=== PATIENT | female | born 1990 | race Caucasian/White ===

== ENCOUNTER 2018-01-29 19:27 | Emergency (ER) | payer SELFPAY ==
[2018-01-29 20:22] LABS: Protime INR 1.03
[2018-01-29 20:26] LABS: Absolute Lymphocytes (CBC) 4.9 K/uL (0.7-4.9); Absolute Monocytes 0.7 K/uL (0.1-1.3); Absolute Neutrophil 4.6 K/uL (1.8-8.0); Basophils % 0.5 % (0-1.3); Eosinophils % 1.6 % (0-4.4); Hematocrit 42.8 % (36.0-45.0); Lymphocytes % 46.8 % (15.3-44.8); MCH 29.5 pg (27.0-35.0); MCV 85.2 fL (80-100); MPV 7.9 fL (7.6-11.3); Monocytes % 6.9 % (3.3-12.3); RBC Red Blood Cell Count 5.03 M/uL (3.86-4.86)
[2018-01-29 20:29] LABS: Glucose Level 85 mg/dL (65-120)
[2018-01-29 20:35] LABS: ALT/SGPT 13 IU/L (10-60); AST/SGOT 14 IU/L (10-42); Albumin 4.7 g/dL (3.2-5.5); Alkaline Phosphatase 41 IU/L (42-121); BUN Blood Urea Nitrogen 19 mg/dL (6-20); Bilirubin Direct 0.1 mg/dL (0-0.2); Bilirubin Total 0.7 mg/dL (0.3-1.2); Protein, Total 7.6 g/dL (6.0-8.3)
[2018-01-29 20:36] LABS: Bicarbonate 31 mEq/L (21-31); Sodium Level 136 mEq/L (135-145)
[2018-01-29 20:38] LABS: Alcohol Serum/Plasma < 10 mg/dl; Potassium 2.9 mEq/L (3.6-5.0)
[2018-01-29 20:57] LABS: Barbiturates NEGATIVE; Benzodiazepines NEGATIVE; Cocaine POSITIVE; Opiates NEGATIVE; Phencyclidine NEGATIVE; THC Cannibis NEGATIVE
[2018-01-29 21:01] LABS: METHAMPHETAM POSITIVE (NEGATIVE)
[2018-01-29 21:44] LABS: Urine Blood NEGATIVE (NEG); Urine Glucose NEGATIVE (NEG); Urine Protein 2+ (NEG); Urine Specific Gravity 1.025 (1.005-1.030); Urine pH 6.5 (5.0-7.0)
[2018-01-29] MEDS ORDERED: POTASSIUM 25 MEQ EFFERV TAB ONE (21:47)
--- NOTE | 2018-01-29 22:22 | EDPHYS ---
Physician Documentation [facility] Name: Lianne Duval Age: 27 yrs Sex: Female : 1990 Arrival Date: 01/29/2018 Time: 19:28 Bed 25 Private MD: ED Physician Bentley Sutton HPI: 01/29 20:00 This 27 yrs old Female presents to ER via Ambulatory with complaints of pm1 Hallucinations. 20:00 The patient presents to the emergency department with auditory hallucinations that are pm1 telling her that people are plotting against her. Patient without any suicidal or homicidal ideation. Hallucinations are not telling her self harm or harm to others. Onset: The symptoms/episode began/occurred 3 day(s) ago. Past psychiatric history: Prior diagnosis: no previous psychiatric diagnosis known, Psychiatric medications include: none, the patient has not had a prior suicide gesture, the patient does not have a previous inpatient psychiatric history. Associated signs and symptoms: Pertinent positives; substance abuse, Pertinent negatives: abdominal pain, chest pain, fever, headache, nausea, vomiting. The patient has not experienced similar symptoms in the past. The patient has not recently seen a physician. Patient has been using methamphetamine daily since 2016. Patient was using methamphetamine prior to that until she was put in retirement. 3 days ago the patient started hearing voices and stopped using drugs because she thought that it was due to substance abuse, but the voices continued. in addition to meth amphetamines the patient has been using methadone.. 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 - Social history:: Smoking status: Patient uses tobacco products, smokes one-half pack cigarettes per day, Patient uses street drugs, Methamphetamine (Meth). - Ebola Screening: : No symptoms or risks identified at this time. ROS: 20:00 Constitutional: Negative for fever, chills, and weight loss, Eyes: Negative for injury, pm1 pain, redness, and discharge, ENT: Negative for injury, pain, and discharge, Neck: Negative for injury, pain, and swelling, Cardiovascular: Negative for chest pain, palpitations, and edema, Respiratory: Negative for shortness of breath, cough, wheezing, and pleuritic chest pain, Abdomen/GI: Negative for abdominal pain, nausea, vomiting, diarrhea, and constipation, Back: Negative for injury and pain, : Negative for injury, bleeding, discharge, and swelling, MS/Extremity: Negative for injury and deformity, Skin: Negative for injury, rash, and discoloration, Neuro: Negative for headache, weakness, numbness, tingling, and seizure. 20:00 Psych: Positive for auditory hallucinations, Negative for homicidal ideation, suicide gesture, suicidal ideation. Exam: 20:00 Constitutional: This is a well developed, well nourished patient who is awake, alert, pm1 and in no acute distress. Head/Face: Normocephalic, atraumatic. Eyes: Pupils equal round and reactive to light, extra-ocular motions intact. Lids and lashes normal. Conjunctiva and sclera are non-icteric and not injected. Cornea within normal limits. Periorbital areas with no swelling, redness, or edema. ENT: Nares patent. No nasal discharge, no septal abnormalities noted. Tympanic membranes are normal and external auditory canals are clear. Oropharynx with no redness, swelling, or masses, exudates, or evidence of obstruction, uvula midline. Mucous membranes moist. Neck: Trachea midline, no thyromegaly or masses palpated, and no cervical lymphadenopathy. Supple, full range of motion without nuchal rigidity, or vertebral point tenderness. No Meningismus. Chest/axilla: Normal chest wall appearance and motion. Nontender with no deformity. No lesions are appreciated. Cardiovascular: Regular rate and rhythm with a normal S1 and S2. No gallops, murmurs, or rubs. Normal PMI, no JVD. No pulse deficits. Respiratory: Lungs have equal breath sounds bilaterally, clear to auscultation and percussion. No rales, rhonchi or wheezes noted. No increased work of breathing, no retractions or nasal flaring. Abdomen/GI: Soft, non-tender, with normal bowel sounds. No distension or tympany. No guarding or rebound. No evidence of tenderness throughout. Back: No spinal tenderness. No costovertebral tenderness. Full range of motion. Skin: Warm, dry with normal turgor. Normal color with no rashes, no lesions, and no evidence of cellulitis. MS/ Extremity: Pulses equal, no cyanosis. Neurovascular intact. Full, normal range of motion. 20:00 Neuro: Orientation: is normal, Motor: is normal, no acute changes. 20:00 Psych: Behavior/mood is cooperative, Affect is calm, Oriented to person, place, time, Patient has no thoughts/intents to harm self or others. Judgement / Insight is normal. Vital Signs: 19:38 BP 139 / 99; Pulse 104; Resp 20; Temp 97.3; Pulse Ox 100% on R/A; Weight 45.36 kg (R); aj Height 5 ft. 3 in. (160.02 cm); 20:19 BP 137 / 102; Pulse 79; Resp 18; Pulse Ox 100% on R/A; tl2 21:13 BP 138 / 91; Pulse 74; Resp 18; Pulse Ox 100% on R/A; tl2 22:09 BP 132 / 95; Pulse 95; Resp 18; Pulse Ox 100% on R/A; tl2 19:38 Body Mass Index 17.71 (45.36 kg, 160.02 cm) aj MDM: 19:46 Patient medically screened. pm1 22:17 Data reviewed: vital signs. Data interpreted: Pulse oximetry: on room air is 100 %. pm1 Interpretation: normal. Counseling: I had a detailed discussion with the patient and/or guardian regarding: the historical points, exam findings, and any diagnostic results supporting the discharge/admit diagnosis, lab results, the need for outpatient follow up, to return to the emergency department if symptoms worsen or persist or if there are any questions or concerns that arise at home. 23:00 ED course: Patient reports white painless vaginal discharge prior to ER discharge. pm1 Offered pelvic examination and cultures. Patient refused and reported to the nurse that she would follow up at [facility] instead of examination in the ER. 01/29 19:54 Order name: Acetaminophen; Complete Time: 21:44 pm1 01/29 19:54 Order name: Basic Metabolic Panel; Complete Time: 21:44 pm1 01/29 19:54 Order name: CBC with Diff; Complete Time: 21:44 pm1 01/29 19:54 Order name: ETOH Level; Complete Time: 21:44 pm1 01/29 19:54 Order name: Hepatic Function; Complete Time: 21:44 pm1 01/29 19:54 Order name: PT-INR; Complete Time: 21:44 pm1 01/29 19:54 Order name: Urine Test (obtain specimen); Complete Time: 20:17 pm1 01/29 19:54 Order name: Ptt, Activated; Complete Time: 21:44 pm1 01/29 19:54 Order name: Salicylate; Complete Time: 21:44 pm1 01/29 19:54 Order name: Urine Drug Screen; Complete Time: 21:44 pm1 01/29 19:54 Order name: EKG; Complete Time: 19:55 pm1 01/29 20:44 Order name: Urine Dipstick--Ancillary (enter results); Complete Time: 21:46 rg2 01/29 20:44 Order name: Urine --Ancillary (enter results); Complete Time: 21:46 2 01/29 19:54 Order name: EKG - Nurse/Tech; Complete Time: 20:07 pm1 01/29 19:54 Order name: IV Saline Lock; Complete Time: 20:07 pm1 01/29 19:54 Order name: Labs collected and sent; Complete Time: 20:08 pm1 01/29 19:54 Order name: Urine Dipstick-Ancillary (obtain specimen); Complete Time: 20:17 pm1 Administered Medications: 21:51 Drug: Potassium Effervescent Tablet 50 mEq Route: PO; tl2 23:02 Follow up: Response: No adverse reaction tl2 Disposition: 01/30 06:04 Co-signature as Attending Physician, Bentley Sutton MD I agree with the assessment and tw4 plan of care. Disposition: 01/29/18 22:21 Discharged to Home. 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 - Condition is Stable. - Discharge Instructions: Alcohol and Drug Addiction, Finding Treatment, Stimulant Use Disorder-Amphetamines, Potassium Content of Foods, Polysubstance Abuse, Stimulant Use Disorder-Methamphetamines, Hypokalemia. - Medication Reconciliation Form, Thank You Letter form. - Follow up: Emergency Department; When: As needed; Reason: Worsening of condition. Follow up: Private Physician; When: 2 - 3 days; Reason: Recheck today's complaints, Continuance of care, Re-evaluation by your physician. - Problem is new. - Symptoms have improved. Signatures: Dispatcher [employer] EDMS Stacia Levine RN RN Kristofer Herrera, JEFFERY ASBESTOS ABATEMENT WORKER pm1 Kellie Lott RN RN tl2 Bentley Sutton MD MD tw4 Corrections: (The following items were deleted from the chart) 01/29 23:04 22:21 01/29/2018 22:21 Discharged to Home. Impression: Polysubstance abuse; Other tl2 stimulant abuse with stimulant-induced psychotic disorder with hallucinations; Hypokalemia. Condition is Stable. Forms are Medication Reconciliation Form, Thank You Letter, Antibiotic Education, Prescription Opioid Use. Follow up: Emergency Department; When: As needed; Reason: Worsening of condition. Follow up: Private Physician; When: 2 - 3 days; Reason: Recheck today's complaints, Continuance of care, Re-evaluation by your physician. Problem is new. Symptoms have improved. pm1
--- NOTE | 2018-01-29 22:22 | ER ---
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 Denies suicidal or homicidal ideations. Reports symptoms started 3 days ago while patient was using Meth. Patient reports she stopped using meth when the symptoms started. Transition of care: patient was not received from another setting of care. Onset of symptoms was January 29, 2018. Risk Assessment: Do you want to hurt yourself or someone else? Patient reports no desire to harm self or others. Initial Sepsis Screen: Does the patient meet any 2 criteria? No. Patient's initial sepsis screen is negative. Does the patient have a suspected source of infection? No. Patient's initial sepsis screen is negative. Care prior to arrival: None. 19:37 Method Of Arrival: Ambulatory 19:37 Acuity: JORI 2 aj Triage Assessment: 19:38 General: Appears in no apparent distress. comfortable, slender, Behavior is calm, aj cooperative, appropriate for age. Pain: Denies pain. Neuro: Level of Consciousness is awake, alert, obeys commands, Oriented to person, place, time, situation, Appropriate for age. Respiratory: Airway is patent Respiratory effort is even, unlabored, Respiratory pattern is regular, symmetrical. Derm: Skin is intact, is healthy with good turgor, Skin is pink, warm \\T\\ dry. normal. 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 - Social history:: Smoking status: Patient uses tobacco products, smokes one-half pack cigarettes per day, Patient uses street drugs, Methamphetamine (Meth). - Ebola Screening: : No symptoms or risks identified at this time. Screenin:47 Abuse screen: Denies threats or abuse. Nutritional screening: No deficits noted. tl2 Tuberculosis screening: No symptoms or risk factors identified. Fall Risk None identified. Assessment: 19:47 General: Appears in no apparent distress. unkempt, Behavior is cooperative, appropriate tl2 for age, anxious. General: Pt states she is hearing voices and having paranoid thoughts, "I feel like everyone is out to get me, but I know it's just making me crazy." Pt reports stopping the meth to see if that was causing it but the thoughts have continued. . Pain: Complains of pain in tongue. Neuro: Level of Consciousness is awake, alert, obeys commands, Oriented to person, place, time, situation. Cardiovascular: Denies chest pain. Respiratory: Airway is patent Respiratory effort is even, unlabored, Respiratory pattern is regular, symmetrical. GI: No signs and/or symptoms were reported involving the gastrointestinal system. : No signs and/or symptoms were reported regarding the genitourinary system. Derm: Skin is pink, warm \\T\\ dry. 21:14 Reassessment: Patient appears in no apparent distress at this time. No changes from tl2 previously documented assessment. Patient and/or family updated on plan of care and expected duration. Pain level reassessed. Patient is alert, oriented x 3, equal unlabored respirations, skin warm/dry/pink. Pt resting, family at bedside. 23:02 Reassessment: Patient appears in no apparent distress at this time. Patient and/or tl2 family updated on plan of care and expected duration. Pain level reassessed. Patient is alert, oriented x 3, equal unlabored respirations, skin warm/dry/pink. Pt verbalized understanding of discharge instructions, need for follow up and instructions for [facility] clinic in [place]. Psych: 19:51 Subjective: Patient's mood is euphoric, Delusions are denied, Hallucinations are tl2 auditory, Having thoughts of paranoia. Objective: Patient is cooperative, Speech is normal, Affect is appropriate. Interventions: Patient placed in hospital gown. Suicide Risk Assessment: Sad Person Scale: Sex of patient: Female: Score 0 points. Age of patient: Score 1 point if patient 15-34. Suicide Risk Assessment: Sad Person Scale: Depression: Score 0 point if signs of depression are not present. Previous Attempt: Score 0 point if patient has not previously attempted suicide. Substance Abuse: Score 1 point if patient abuses alcohol or drugs. Rational Thinking: Score 0 point if patient has rational thinking. Social Support: Score 0 if social support is present/available. Organized Plan: Score 0 if patient did not have an organized plan in place. Relationship: Score 1 point if patient is , , , or for a single male Chronic Sickness: Score 0 point if patient does not have a chronic illness, debilitating, or severe disorder. Patient uses methamphetamines Last use was 3 days ago. Vital Signs: 19:38 BP 139 / 99; Pulse 104; Resp 20; Temp 97.3; Pulse Ox 100% on R/A; Weight 45.36 kg (R); aj Height 5 ft. 3 in. (160.02 cm); 20:19 BP 137 / 102; Pulse 79; Resp 18; Pulse Ox 100% on R/A; tl2 21:13 BP 138 / 91; Pulse 74; Resp 18; Pulse Ox 100% on R/A; tl2 22:09 BP 132 / 95; Pulse 95; Resp 18; Pulse Ox 100% on R/A; tl2 19:38 Body Mass Index 17.71 (45.36 kg, 160.02 cm) ED Course: 19:28 Patient arrived in ED. am2 19:38 Triage completed. aj 19:38 Arm band placed on right wrist. Patient placed in an exam room. aj 19:43 Kristofer Fraire NP is PHCP. pm1 19:43 Bentley Sutton MD is Attending Physician. pm1 19:47 Kellie Lott, WENDY is Primary Nurse. tl2 19:47 Patient has correct armband on for positive identification. Bed in low position. Call tl2 light in reach. Side rails up X 1. Adult w/ patient. 20:08 Inserted saline lock: 22 gauge in left antecubital area, using aseptic technique. Blood tl2 collected. 23:02 No provider procedures requiring assistance completed. IV discontinued, intact, tl2 bleeding controlled, No redness/swelling at site. Pressure dressing applied. Administered Medications: 21:51 Drug: Potassium Effervescent Tablet 50 mEq Route: PO; tl2 23:02 Follow up: Response: No adverse reaction tl2 Outcome: 22:21 Discharge ordered by . pm1 23:02 Discharged to home ambulatory, with family. tl2 23:02 Condition: stable 23:02 Discharge instructions given to patient, family, Instructed on discharge instructions, follow up and referral plans. safety practices, Demonstrated understanding of instructions, follow-up care. 23:04 Patient left the ED. tl2 Signatures: Stacia Levine RN Kristofer Boss NP PART TIME FLEXIBLE CLERK pm1 Kellie Lott RN RN tl2 Stacia Bush am2
[2018-01-29 23:16] VITALS: TEMP 97.3; O2SAT 100
[2018-01-29 23:20] VITALS: BP 132/95
--- NOTE | 2018-01-30 06:51 | EKG ---
Test Date: 2018-01-29 Test Time: 20:02:08 Brick Or Block Maker: GLORIA MEASUREMENT RESULTS: Intervals: Rate: 76 HI: 154 QRSD: 96 QT: 400 QTc: 450 [place]: P: 67 HI: 154 QRS: 55 T: 63 INTERPRETIVE STATEMENTS: Normal sinus rhythm with sinus arrhythmia Possible Left atrial enlargement Borderline ECG Compared to ECG 08/12/2016 15:13:25 Sinus tachycardia no longer present Myocardial infarct finding no longer present Electronically Signed On 01-30-18 06:50:49 CDT by Gamal Crawford
== END 2018-01-29 23:04 | disposition home or self-care (01) ==
LOC: ER 19:27
DX: F19.10 Other psychoactive substance abuse, uncomplicated (principal); F15.151 Other stimulant abuse with stimulant-induced psychotic disorder with hallucinations; E87.6 Hypokalemia; R44.0 Auditory hallucinations; F17.210 Nicotine dependence, cigarettes, uncomplicated
CPT/HCPCS: 36415; 80048; 80076; 80307; 80320; 80329; 81003; 81025; 85025; 85610; 85730; 93005; 99284

== ENCOUNTER 2018-05-18 19:17 | Emergency (ER) | payer SELFPAY ==
--- NOTE | 2018-05-18 20:55 | EDPHYS ---
Physician Documentation [facility] Name: Lianne Duval Age: 27 yrs Sex: Female : 1990 Arrival Date: 05/18/2018 Time: 19:19 Bed 9 Private MD: ED Physician Bentley Sutton HPI: 05/18 20:47 This 27 yrs old Female presents to ER via Ambulatory with complaints of Boil. tw4 20:47 The patient presents with an abscess of the gluteal cleft. Description: The affected tw4 area is small, localized, draining, erythematous, fluctuant. Onset: The symptoms/episode began/occurred 3 day(s) ago. Possible cause(s): unknown. Associated signs and symptoms: The patient has no apparent associated signs or symptoms. Modifying factors: the symptoms are alleviated by nothing, the symptoms are aggravated by nothing. Severity of symptoms: At their worst the symptoms were moderate, in the emergency department the symptoms are unchanged. The patient has not experienced similar symptoms in the past. 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 - Social history:: Smoking status: Patient uses tobacco products, smokes one-half pack cigarettes per day, Patient uses alcohol, but reports only rare drinking. street drugs, Methamphetamine (Meth). - Ebola Screening: : No symptoms or risks identified at this time. ROS: 20:47 Constitutional: Negative for fever, chills, and weight loss. tw4 20:47 Skin: Positive for erythema, swelling. Exam: 20:47 Constitutional: This is a well developed, well nourished patient who is awake, alert, tw4 and in no acute distress. 20:47 Skin: abscess, that is small, with drainage, that is bloody, that is purulent, with fluctuance, that is mild. Vital Signs: 19:52 BP 135 / 100; Pulse 89; Resp 18; Temp 98(O); Pulse Ox 100% ; Weight 49.9 kg; Height 5 mg2 ft. 3 in. (160.02 cm); Pain 10/10; 19:52 Body Mass Index 19.49 (49.90 kg, 160.02 cm) mg2 MDM: 19:40 Patient medically screened. tw4 20:47 Data reviewed: vital signs, nurses notes. Counseling: I had a detailed discussion with tw4 the patient and/or guardian regarding: the historical points, exam findings, and any diagnostic results supporting the discharge/admit diagnosis. Special discussion: I discussed with the patient/guardian in detail that at this point there is no indication for admission to the hospital. It is understood, however, that if the symptoms persist or worsen the patient needs to return immediately for re-evaluation. 20:56 ED course: Pt abscess draining well does not need incision and drainage. tw4 Administered Medications: 21:14 Drug: Clindamycin 300 mg Route: PO; mg2 21:15 Follow up: Response: No adverse reaction; Medication administered at discharge. mg2 21:14 Drug: Ibuprofen 800 mg Route: PO; mg2 21:15 Follow up: Response: No adverse reaction; Medication administered at discharge. mg2 21:14 Drug: Tylenol #3 (300 mg-30 mg) 1 tablet Route: PO; mg2 21:15 Follow up: Response: No adverse reaction; Medication administered at discharge. mg2 Disposition: 05/18/18 20:54 Discharged to Home. Impression: Cutaneous abscess of buttock. - Condition is Stable. - Discharge Instructions: Skin Abscess, Incision and Drainage, How to Take a Sitz Bath, Skin Abscess, [id number], Disposable Sitz Bath. - Prescriptions for Cleocin 300 mg Oral Capsule - take 1 capsule by ORAL route every 6 hours for 10 days; 40 capsule. Ibuprofen 800 mg Oral Tablet - take 1 tablet by ORAL route every 12 hours As needed take with food; 20 tablet. Tylenol- Codeine #4 300-60 mg Oral Tablet - take 1 tablet by ORAL route every 6 hours As needed; 6 tablet. - Medication Reconciliation Form, Thank You Letter, Antibiotic Education, Prescription Opioid Use form. - Follow up: Private Physician; When: Upon discharge from the Emergency Department; Reason: Wound Recheck, Recheck today's complaints, Re-evaluation by your physician. - Problem is new. - Symptoms have improved. Signatures: Bentley Sutton MD MD tw4 Lauri Rodriguez RN RN mg2 Corrections: (The following items were deleted from the chart) 21:19 20:54 05/18/2018 20:54 Discharged to Home. Impression: Cutaneous abscess of buttock. mg2 Condition is Stable. Forms are Medication Reconciliation Form, Thank You Letter, Antibiotic Education, Prescription Opioid Use. Follow up: Private Physician; When: Upon discharge from the Emergency Department; Reason: Wound Recheck, Recheck today's complaints, Re-evaluation by your physician. Problem is new. Symptoms have improved. tw4
--- NOTE | 2018-05-18 20:55 | ER ---
Nurse's Notes [facility] Name: Lianne Duval Age: 27 yrs Sex: Female : 1990 Arrival Date: 05/18/2018 Time: 19:19 Bed 9 Private MD: Diagnosis: Cutaneous abscess of buttock Presentation: 05/18 19:50 Presenting complaint: Patient states: she has pilonidal abscess for a week already. mg2 Transition of care: patient was not received from another setting of care. Onset of symptoms was May 2018. Risk Assessment: Do you want to hurt yourself or someone else? Patient reports no desire to harm self or others. Initial Sepsis Screen: Does the patient meet any 2 criteria? No. Patient's initial sepsis screen is negative. Does the patient have a suspected source of infection? No. Patient's initial sepsis screen is negative. Care prior to arrival: None. 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 - Social history:: Smoking status: Patient uses tobacco products, smokes one-half pack cigarettes per day, Patient uses alcohol, but reports only rare drinking. street drugs, Methamphetamine (Meth). - Ebola Screening: : No symptoms or risks identified at this time. Screenin:16 Abuse screen: Denies threats or abuse. Denies injuries from another. Nutritional mg2 screening: No deficits noted. Tuberculosis screening: No symptoms or risk factors identified. Fall Risk None identified. Assessment: 21:15 General: Appears in no apparent distress. uncomfortable, Behavior is calm, cooperative. mg2 Pain: Complains of pain in buttocks and gluteal cleft Pain does not radiate. Pain currently is 5 out of 10 on a pain scale. Neuro: Level of Consciousness is awake, alert, obeys commands, Oriented to person, place, time, situation. Cardiovascular: No deficits noted. Respiratory: No deficits noted. GI: No signs and/or symptoms were reported involving the gastrointestinal system. :. : No signs and/or symptoms were reported regarding the genitourinary system. EENT: No deficits noted. Derm: Abscess located on gluteal cleft is nickel sized. Musculoskeletal: No signs and/or symptoms reported regarding the musculoskeletal system. Vital Signs: 19:52 BP 135 / 100; Pulse 89; Resp 18; Temp 98(O); Pulse Ox 100% ; Weight 49.9 kg; Height 5 mg2 ft. 3 in. (160.02 cm); Pain 10/10; 19:52 Body Mass Index 19.49 (49.90 kg, 160.02 cm) mg2 ED Course: 19:19 Patient arrived in ED. es 19:30 Lauri Rodriguez, RN is Primary Nurse. mg2 19:39 Bentley Sutton MD is Attending Physician. tw4 19:51 Triage completed. mg2 21:16 Patient has correct armband on for positive identification. Pulse ox on. NIBP on. mg2 21:17 examination of pns abscess. Patient did not have IV access during this emergency room mg2 visit. 21:18 Arm band placed on. mg2 Administered Medications: 21:14 Drug: Clindamycin 300 mg Route: PO; mg2 21:15 Follow up: Response: No adverse reaction; Medication administered at discharge. mg2 21:14 Drug: Ibuprofen 800 mg Route: PO; mg2 21:15 Follow up: Response: No adverse reaction; Medication administered at discharge. mg2 21:14 Drug: Tylenol #3 (300 mg-30 mg) 1 tablet Route: PO; mg2 21:15 Follow up: Response: No adverse reaction; Medication administered at discharge. mg2 Outcome: 20:54 Discharge ordered by . tw4 21:18 Discharged to home ambulatory. mg2 21:18 Condition: stable 21:18 Discharge instructions given to patient, Instructed on discharge instructions, follow up and referral plans. medication usage, Demonstrated understanding of instructions, follow-up care, medications, Prescriptions given X 3. 21:19 Patient left the ED. mg2 Signatures: Jing Lou Terrence, MD MD tw4 Lauri Rodriguez, RN RN mg2
[2018-05-18] MEDS ORDERED: CLINDAMYCIN HCL 150 MG CAP ONE (21:08)
[2018-05-18] MEDS ORDERED: CODEINE 30MG/APAP 300MG TAB ONE (21:08)
[2018-05-18] MEDS ORDERED: IBUPROFEN 400 MG TAB ONE (21:08)
[2018-05-18 21:26] VITALS: BP 135/100; TEMP 98; O2SAT 100
== END 2018-05-18 21:19 | disposition home or self-care (01) ==
LOC: ER 19:17
DX: L02.31 Cutaneous abscess of buttock (principal)
CPT/HCPCS: 99283

== ENCOUNTER 2018-06-04 16:27 | Emergency (ER) | payer SELFPAY ==
[2018-06-04] MEDS ORDERED: NA CHLORIDE 0.9% 1,000 ML ONE ×2 (17:20→18:34)
--- NOTE | 2018-06-04 17:30 | RAD REPORT ---
EXAM DESCRIPTION: CT - Head Brain Wo Cont - 06/04/2018 5:18 pm CLINICAL HISTORY: Transient alteration of awareness, vomiting COMPARISON: None. TECHNIQUE: Axial 5 mm thick images of the head were obtained without IV contrast. All CT scans are performed using dose optimization technique as appropriate and may include automated exposure control or mA/KV adjustment according to patient size. FINDINGS: No intracranial hemorrhage, mass, edema or shift of mid-line structures. No acute infarcti on changes seen. No abnormal extra-axial fluid collections. Ventricles are normal. Mastoid air cells and visualized portions of the paranasal sinuses are clear. No acute bony findings. IMPRESSION: Negative non-contrast CT head examination.
[2018-06-04 17:34] LABS: Absolute Lymphocytes (CBC) 5.6 K/uL (0.7-4.9); Absolute Monocytes 0.6 K/uL (0.1-1.3); Basophils % 0.5 % (0-1.3); Lymphocytes % 53.7 % (15.3-44.8); MCH 29.6 pg (27.0-35.0); MCV 87.1 fL (80-100); MPV 7.8 fL (7.6-11.3); Monocytes % 6.1 % (3.3-12.3)
[2018-06-04 17:39] LABS: Protime INR 1.1
[2018-06-04 17:58] LABS: ALT/SGPT 17 U/L (12-78); AST/SGOT 9 U/L (15-37); Alkaline Phosphatase 46 U/L (45-117); BUN Blood Urea Nitrogen 14 mg/dL (7-18); Bicarbonate 28 mmol/L (21-32); Bilirubin Direct 0.2 mg/dL (0-0.2); Bilirubin Total 0.6 mg/dL (0.2-1.0); Glucose Level 119 mg/dL (74-106); Potassium 3.3 mmol/L (3.5-5.1); Protein, Total 7.4 g/dL (6.4-8.2); Sodium Level 141 mmol/L (136-145)
[2018-06-04] MEDS ORDERED: KCL 20 MEQ/100 mL IVPB 20 MEQ/100 ML BAG IV ONE (18:34)
--- NOTE | 2018-06-04 18:53 | ER ---
Nurse's Notes [facility] Name: Lianne Duval Age: 27 yrs Sex: Female : 1990 Arrival Date: 06/04/2018 Time: 16:31 Bed 2 Private MD: Diagnosis: Vomiting;Drug abuse counseling and surveillance;Dehydration;Hypokalemia Presentation: 06/04 16:43 Presenting complaint: Patient states: Reports vomiting that started 1 hour ago. Reports aj taking Xanax 2mg and " a quarter of a suboxone". Transition of care: patient was not received from another setting of care. Onset of symptoms was June 04, 2018. Risk Assessment: Do you want to hurt yourself or someone else? Patient reports no desire to harm self or others. Initial Sepsis Screen: Does the patient meet any 2 criteria? No. Patient's initial sepsis screen is negative. Does the patient have a suspected source of infection? No. Patient's initial sepsis screen is negative. Care prior to arrival: None. 16:43 Method Of Arrival: Ambulatory 16:43 Acuity: JORI 2 Triage Assessment: 16:45 General: Appears in no apparent distress. comfortable, Behavior is drowsy. Pain: Denies aj pain. Neuro: Level of Consciousness is obtunded, Oriented to person, place, time, situation. Respiratory: Airway is patent Respiratory effort is even, unlabored, Respiratory pattern is regular, symmetrical. GI: Reports nausea, vomiting. Derm: Skin is intact, is healthy with good turgor, Skin is normal, pale. 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 - Social history:: Smoking status: Patient uses tobacco products, smokes one-half pack cigarettes per day, Patient uses IV drugs, amphetamines, Xanax, soboxone. - Ebola Screening: : Patient negative for fever greater than or equal to 101.5 degrees Fahrenheit, and additional compatible Ebola Virus Disease symptoms Patient denies exposure to infectious person Patient denies travel to an Ebola-affected area in the 21 days before illness onset No symptoms or risks identified at this time. - Family history:: not pertinent. - Hospitalizations: : No recent hospitalization is reported. Screenin:02 Abuse screen: Denies threats or abuse. Denies injuries from another. Nutritional bp screening: No deficits noted. Tuberculosis screening: No symptoms or risk factors identified. Fall Risk No fall in past 12 months (0 pts). No secondary diagnosis (0 pts). IV access (20 points). Ambulatory Aid- None/Bed Rest/Nurse Assist (0 pts). Gait- Normal/Bed Rest/Wheelchair (0 pts) Mental Status- Oriented to own ability (0 pts). Total Dunlap Fall Scale indicates No Risk (0-24 pts). Assessment: 17:02 General: Appears distressed, comfortable, slender, malnourished, Behavior is bp cooperative, drowsy, listless. Pain: Denies pain. Neuro: Level of Consciousness is obeys commands, lethargic, Oriented to person, place, time, situation, Appropriate for age. Cardiovascular: Rhythm is sinus rhythm. Respiratory: Airway is patent Respiratory effort is even, unlabored, Respiratory pattern is regular, symmetrical. GI: Reports vomiting. : No signs and/or symptoms were reported regarding the genitourinary system. EENT: PUPILS CONSTRICTED, PALES SCLERA. Derm: No deficits noted. Musculoskeletal: Circulation, motion, and sensation intact. Range of motion: intact in all extremities. 17:19 Reassessment: PT TO CT WITH DISPATCHER MOTOR VEHICLE. bp 18:00 Reassessment: ALL CURRENT STUDIES COMPLETED, RESULTS PENDING. PT CONTINUES TO BE bp LETHARGIC/DROWSY, VS STABLE ON MONITOR. 19:15 Reassessment: Patient and/or family updated on plan of care and expected duration. Pain tl1 level reassessed. Patient is alert, oriented x 3, equal unlabored respirations, skin warm/dry/pink. Patient states feeling better. Patient states symptoms have improved. Vital Signs: 16:45 BP 131 / 105; Pulse 97; Resp 19; Temp 98.1; Pulse Ox 99% on R/A; Weight 49.9 kg; Height aj 5 ft. 3 in. (160.02 cm); 17:08 BP 134 / 94; Pulse 66; Resp 13; Pulse Ox 100% ; bp 18:00 BP 132 / 114; Pulse 79; Resp 15; Pulse Ox 100% ; bp 18:30 BP 122 / 101; Pulse 86; Resp 20; Pulse Ox 100% ; bp 19:12 BP 121 / 93; Pulse 87; Resp 16; Pulse Ox 100% on R/A; Pain 0/10; tl1 20:39 BP 124 / 87; Pulse 92; Resp 16; Temp 98.4; Pulse Ox 100% ; Pain 0/10; tl1 16:45 Body Mass Index 19.49 (49.90 kg, 160.02 cm) ED Course: 16:31 Patient arrived in ED. rg4 16:45 Triage completed. aj 16:45 Arm band placed on right wrist. Patient placed in an exam room. aj 16:50 Surinder Rivas, RN is Primary Nurse. bp 16:52 Keshav Zaldivar MD is Attending Physician. rn 17:05 Patient has correct armband on for positive identification. Placed in gown. Bed in low bp position. Call light in reach. Side rails up X2. Adult w/ patient. 17:15 EKG done, by nuclear monitoring technician. reviewed by Keshav Zaldivar MD. 3 17:18 CT Head Brain wo Cont In Process Unspecified. EDMS 17:23 Initial lab(s) drawn, by me, sent to lab. Inserted. Inserted saline lock: 20 gauge in jb1 right antecubital area, using aseptic technique. Blood collected. 18:32 Urine collected: clean catch specimen, cloudy, guillaume colored. jb1 20:41 No provider procedures requiring assistance completed. IV discontinued, intact, tl1 bleeding controlled, No redness/swelling at site. Pressure dressing applied. Administered Medications: 17:27 Drug: NS 0.9% 1000 ml Route: IV; Rate: 1000 ml; Site: right antecubital; hj 20:41 Follow up: IV Status: Completed infusion tl1 18:35 Drug: Potassium Chloride 20 mEq Route: IV; Rate: 1 bolus; Site: right forearm; bp 20:40 Follow up: IV Status: Completed infusion tl1 18:35 Drug: NS 0.9% 1000 ml Route: IV; Rate: 1000 ml; Site: right forearm; bp 20:40 Follow up: IV Status: Completed infusion tl1 Point of Care Testing: Blood Glucose: 17:10 Blood Glucose: 125 mg/dL; bp Ranges: Outcome: 18:53 Discharge ordered by . rn 20:40 Discharged to home ambulatory, with family. tl1 20:40 Condition: good 20:40 Discharge instructions given to patient, family, Instructed on discharge instructions, follow up and referral plans. Demonstrated understanding of instructions, follow-up care. 21:00 Patient left the ED. tl1 Signatures: Dispatcher [employer] EDMS Augustine Bradford jb1 Stacia Levine RN RN aj Nieto, Roman, MD MD rn Lasagna, Tonya, RN RN tl1 Deshawn Grajeda RN RN hj Garcia, Rubi 4 Surinder Rivas RN RN bp Montes, Shakira 3 Corrections: (The following items were deleted from the chart) 17:24 17:05 Inserted saline lock: 20 gauge in right antecubital area, using aseptic jb1 technique. Blood collected. bp 18:19 17:02 Neuro: Level of Consciousness is awake, alert, obeys commands, Oriented to bp person, place, time, situation, Appropriate for age bp
--- NOTE | 2018-06-04 18:54 | EDPHYS ---
Physician Documentation [facility] Name: Lianne Duval Age: 27 yrs Sex: Female : 1990 Arrival Date: 06/04/2018 Time: 16:31 Bed 2 Private MD: ED Physician Keshav Zaldivar HPI: 06/04 17:28 This 27 yrs old Female presents to ER via Ambulatory with complaints of rn Vomiting. 17:28 The patient presents to the emergency department with nausea, vomiting. Onset: The rn symptoms/episode began/occurred today. Possible causes: unknown. The symptoms are aggravated by nothing. The symptoms are alleviated by nothing. Severity of symptoms: At their worst the symptoms were moderate in the emergency department the symptoms are unchanged. The patient has experienced similar episodes in the past. Reports nausea/vomiting, generalized weakness, and pale, began today, no fever, no headache, states took 1 xanax and 1 suboxone today, uses meth and stimulants every other day per friend in room, but brought her in because "looks more messed up than she should be with what she took". Pt denies head trauma, no chest pain/cough/sob/abd pain. Denies other drug use today. . 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 - Social history:: Smoking status: Patient uses tobacco products, smokes one-half pack cigarettes per day, Patient uses IV drugs, amphetamines, Xanax, soboxone. - Ebola Screening: : Patient negative for fever greater than or equal to 101.5 degrees Fahrenheit, and additional compatible Ebola Virus Disease symptoms Patient denies exposure to infectious person Patient denies travel to an Ebola-affected area in the 21 days before illness onset No symptoms or risks identified at this time. - Family history:: not pertinent. - Hospitalizations: : No recent hospitalization is reported. ROS: 17:28 Constitutional: Negative for fever, chills, and weight loss, Eyes: Negative for injury, rn pain, redness, and discharge, Neck: Negative for injury, pain, and swelling, Cardiovascular: Negative for chest pain, palpitations, and edema, Respiratory: Negative for shortness of breath, cough, wheezing, and pleuritic chest pain, Abdomen/GI: + nausea/vomiting MS/Extremity: Negative for injury and deformity, Skin: Negative for injury, rash, and discoloration, Neuro: + generalized weakness Exam: 17:28 Constitutional: Thin female, somnolent, pale lips and skin Head/Face: Normocephalic, rn atraumatic. Eyes: pupils 2mm, reactive, no nystagmus ENT: dry MM Neck: Trachea midline, no thyromegaly or masses palpated, and no cervical lymphadenopathy. Supple, full range of motion without nuchal rigidity, or vertebral point tenderness. No Meningismus. Cardiovascular: Regular rate and rhythm with a normal S1 and S2. No gallops, murmurs, or rubs. Normal PMI, no JVD. No pulse deficits. Respiratory: Lungs have equal breath sounds bilaterally, clear to auscultation and percussion. No rales, rhonchi or wheezes noted. No increased work of breathing, no retractions or nasal flaring. Abdomen/GI: Soft, non-tender, with normal bowel sounds. No distension or tympany. No guarding or rebound. No evidence of tenderness throughout. Skin: warm, dry, bilateral upper ext with ulcerated wounds and excoriations MS/ Extremity: Pulses equal, no cyanosis. Neurovascular intact. Full, normal range of motion. Equal circumference. Neuro: Somnolent, moves all 4 ext, able to sit up, slight slurring of speech, sensation intact. Vital Signs: 16:45 BP 131 / 105; Pulse 97; Resp 19; Temp 98.1; Pulse Ox 99% on R/A; Weight 49.9 kg; Height aj 5 ft. 3 in. (160.02 cm); 17:08 BP 134 / 94; Pulse 66; Resp 13; Pulse Ox 100% ; bp 18:00 BP 132 / 114; Pulse 79; Resp 15; Pulse Ox 100% ; bp 18:30 BP 122 / 101; Pulse 86; Resp 20; Pulse Ox 100% ; bp 19:12 BP 121 / 93; Pulse 87; Resp 16; Pulse Ox 100% on R/A; Pain 0/10; tl1 20:39 BP 124 / 87; Pulse 92; Resp 16; Temp 98.4; Pulse Ox 100% ; Pain 0/10; tl1 16:45 Body Mass Index 19.49 (49.90 kg, 160.02 cm) aj MDM: 16:52 Patient medically screened. rn 18:47 Differential diagnosis: viral gastroenteritis, gastroenteritis, drug induced disorder, rn hypokalemia, dehydration. Data reviewed: vital signs, nurses notes, lab test result(s), radiologic studies, CT scan, and as a result, I will discharge patient. Counseling: I had a detailed discussion with the patient and/or guardian regarding: the historical points, exam findings, and any diagnostic results supporting the discharge/admit diagnosis, lab results, radiology results, the need for outpatient follow up, to return to the emergency department if symptoms worsen or persist or if there are any questions or concerns that arise at home. Response to treatment: the patient's symptoms have markedly improved after treatment, patient is well hydrated. and as a result, I will discharge patient. Special discussion: I discussed with the patient/guardian in detail that at this point there is no indication for admission to the hospital. It is understood, however, that if the symptoms persist or worsen the patient needs to return immediately for re-evaluation. ED course: Pt improved, more alert, better color to skin and lips, dehydrated, hypokalemic, and effects of drugs. Recommended stopping using drugs, and will dc home with patient plan to go to rehab. Patient leaving with friend/significant other. Feels much better. . 06/04 17:06 Order name: Acetaminophen; Complete Time: 18:23 rn 06/04 17:06 Order name: Basic Metabolic Panel; Complete Time: 18:23 rn 06/04 17:06 Order name: CBC with Diff; Complete Time: 17:48 rn 06/04 17:06 Order name: ETOH Level; Complete Time: 18:27 rn 06/04 17:06 Order name: Hepatic Function; Complete Time: 18:23 rn 06/04 17:06 Order name: PT-INR; Complete Time: 17:48 rn 06/04 17:06 Order name: Ptt, Activated; Complete Time: 17:48 rn 06/04 17:06 Order name: Salicylate; Complete Time: 18:34 rn 06/04 17:06 Order name: Urine Drug Screen; Complete Time: 19:06 rn 06/04 17:06 Order name: CT Head Brain wo Cont; Complete Time: 17:38 rn 06/04 17:12 Order name: AMMONIA; Complete Time: 18:23 rn 06/04 18:28 Order name: Urine Dipstick--Ancillary (enter results) eb 06/04 18:28 Order name: Urine --Ancillary (enter results) eb 06/04 17:06 Order name: Urine Test (obtain specimen); Complete Time: 18:33 rn 06/04 17:06 Order name: EKG; Complete Time: 17:06 rn 06/04 17:06 Order name: EKG - Nurse/Tech; Complete Time: 17:09 rn 06/04 17:06 Order name: IV Saline Lock; Complete Time: 17:09 rn 06/04 17:06 Order name: Labs collected and sent; Complete Time: 17:09 rn 06/04 17:06 Order name: Urine Dipstick-Ancillary (obtain specimen); Complete Time: 18:32 rn 06/04 17:07 Order name: Accucheck; Complete Time: 17:09 rn Administered Medications: 17:27 Drug: NS 0.9% 1000 ml Route: IV; Rate: 1000 ml; Site: right antecubital; hj 20:41 Follow up: IV Status: Completed infusion tl1 18:35 Drug: Potassium Chloride 20 mEq Route: IV; Rate: 1 bolus; Site: right forearm; bp 20:40 Follow up: IV Status: Completed infusion tl1 18:35 Drug: NS 0.9% 1000 ml Route: IV; Rate: 1000 ml; Site: right forearm; bp 20:40 Follow up: IV Status: Completed infusion tl1 Point of Care Testing: Blood Glucose: 17:10 Blood Glucose: 125 mg/dL; bp Ranges: Critical Glucose Levels:Adult <50 mg/dl or >400 mg/dl <40 mg/dl or >180 mg/dl Disposition: 06/04/18 18:53 Discharged to Home. Impression: Vomiting, Drug abuse counseling and surveillance, Dehydration, Hypokalemia. - Condition is Stable. - Discharge Instructions: Dehydration, Adult, Nausea and Vomiting, Adult, Hypokalemia. - Medication Reconciliation Form, Thank You Letter, Antibiotic Education, Prescription Opioid Use form. - Follow up: Private Physician; When: As needed; Reason: Recheck today's complaints, Re-evaluation by your physician. - Problem is new. - Symptoms have improved. Signatures: Dispatcher [employer] EDStacia Roth, RN RN Keshav Galarza MD MD rn Lasagna, Tonya, RN RN tl1 Deshawn Grajeda RN RN Surinder Bach, RN RN bp Corrections: (The following items were deleted from the chart) 21:00 18:53 06/04/2018 18:53 Discharged to Home. Impression: Vomiting; Drug abuse counseling tl1 and surveillance; Dehydration; Hypokalemia. Condition is Stable. Forms are Medication Reconciliation Form, Thank You Letter, Antibiotic Education, Prescription Opioid Use. Follow up: Private Physician; When: As needed; Reason: Recheck today's complaints, Re-evaluation by your physician. Problem is new. Symptoms have improved. rn
[2018-06-04 18:59] LABS: Barbiturates NEGATIVE (NEGATIVE); Benzodiazepines POSITIVE (NEGATIVE); Cocaine NEGATIVE (NEGATIVE); METHAMPHETAM POSITIVE (NEGATIVE); Methadone NEGATIVE (NEGATIVE); Opiates NEGATIVE (NEGATIVE); Phencyclidine NEGATIVE (NEGATIVE); THC Cannibis NEGATIVE (NEGATIVE)
[2018-06-04 19:41] LABS: Urine Blood NEGATIVE (NEG); Urine Glucose TRACE (NEG); Urine Protein 1+ (NEG); Urine pH 6.5 (5.0-7.0)
[2018-06-04 21:05] VITALS: O2SAT 100
[2018-06-04 21:10] VITALS: BP 124/87; TEMP 98.4
--- NOTE | 2018-06-06 07:54 | EKG ---
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
== END 2018-06-04 21:00 | disposition home or self-care (01) ==
LOC: ER 16:27
DX: E87.6 Hypokalemia (principal); E86.0 Dehydration; Z71.51 Drug abuse counseling and surveillance of drug abuser
CPT/HCPCS: 36415; 70450; 80048; 80076; 80307; 80320; 80329; 81003; 81025; 82140; 82962; 85025; 85610; 85730; 93005; 96361; 96365; 96366; 99284; J7030

== ENCOUNTER 2018-07-04 19:54 | Emergency (ER) | payer SELFPAY ==
--- NOTE | 2018-07-04 20:20 | ER ---
Nurse's Notes [facility] Name: Lianne Duval Age: 27 yrs Sex: Female : 1990 Arrival Date: 07/04/2018 Time: 19:56 Bed 18 Private MD: Surinder Garcia Diagnosis: Other stimulant abuse;Paresthesia of skin;Essential (primary) hypertension Presentation: 07/04 20:07 Presenting complaint: Patient states: she has been having this problem for a while but bb it has gotten constant over the last week "it feels hot down there" pt denies vaginal discharge or burning with urination. Transition of care: patient was not received from another setting of care. Onset of symptoms is unknown. Risk Assessment: Do you want to hurt yourself or someone else? Patient reports no desire to harm self or others. Initial Sepsis Screen: Does the patient meet any 2 criteria? No. Patient's initial sepsis screen is negative. Does the patient have a suspected source of infection? No. Patient's initial sepsis screen is negative. Care prior to arrival: None. 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 - Social history:: Smoking status: Patient uses tobacco products, smokes one pack cigarettes per day. Patient uses alcohol, but reports only rare drinking. street drugs, Methamphetamine (Meth). - Ebola Screening: : No symptoms or risks identified at this time. Screenin:11 Abuse screen: Denies threats or abuse. Denies injuries from another. Nutritional lp1 screening: No deficits noted. Tuberculosis screening: No symptoms or risk factors identified. Fall Risk None identified. Assessment: 20:10 General: Appears in no apparent distress. Behavior is appropriate for age. Pain: lp1 Complains of pain in groin Pain currently is 5 out of 10 on a pain scale. Quality of pain is described as burning, Pain began States "it has been going on for a while". Neuro: Level of Consciousness is awake, alert, obeys commands. Cardiovascular: Patient's skin is warm and dry. Respiratory: Respiratory effort is even, unlabored. GI: No signs and/or symptoms were reported involving the gastrointestinal system. : Reports vaginal burning. EENT: No signs and/or symptoms were reported regarding the EENT system. Derm: Skin is pink, warm \\T\\ dry. Musculoskeletal: Circulation, motion, and sensation intact. Vital Signs: 20:09 BP 140 / 111; Pulse 114; Resp 16 S; Temp 98.4(O); Pulse Ox 100% on R/A; Weight 52.16 kg bb (R); Height 5 ft. 3 in. (160.02 cm) (R); Pain 10/10; 20:35 BP 150 / 109; Pulse 109; Resp 16; Pulse Ox 99% on R/A; lp1 20:09 Body Mass Index 20.37 (52.16 kg, 160.02 cm) ED Course: 19:56 Patient arrived in ED. es 19:57 Surinder Garcia MD is Private Physician. es 20:03 [facility] snw 20:03 Konstantin Fritz MD is Attending Physician. snw 20:03 Lachelle Peng, WENDY is Primary Nurse. lp1 20:09 Triage completed. bb 20:09 Arm band placed on Patient placed in an exam room, on a stretcher, on pulse oximetry. bb 20:11 Patient has correct armband on for positive identification. lp1 20:35 No provider procedures requiring assistance completed. Patient did not have IV access lp1 during this emergency room visit. Administered Medications: No medications were administered Outcome: 20:19 Discharge ordered by . snw 20:35 Discharged to home ambulatory, with significant other. lp1 20:35 Condition: good 20:35 Discharge instructions given to patient, Instructed on discharge instructions, follow up and referral plans. medication usage, Demonstrated understanding of instructions, follow-up care, medications, Prescriptions given X 1. 20:36 Patient left the ED. lp1 Signatures: Naina Verma FNP-C FNP-Manuelw Jing Lou Brenda, RN RN bb Lachelle Peng RN RN lp1
--- NOTE | 2018-07-04 20:20 | EDPHYS ---
Physician Documentation [facility] Name: Lianne Duval Age: 27 yrs Sex: Female : 1990 Arrival Date: 07/04/2018 Time: 19:56 Bed 18 Private MD: Surinder Garcia ED Physician Konstantin Fritz HPI: 07/04 20:16 This 27 yrs old Female presents to ER via Ambulatory with complaints of snw FEMALE PROBLEMS. 20:16 Onset: The symptoms/episode began/occurred gradually. Associated signs and symptoms: snw Pertinent positives: pt describes burning to perineum, no lesions, no discharge. Modifying factors:. The patient has experienced similar episodes in the past. The patient has not recently seen a physician. 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 - Social history:: Smoking status: Patient uses tobacco products, smokes one pack cigarettes per day. Patient uses alcohol, but reports only rare drinking. street drugs, Methamphetamine (Meth). - Ebola Screening: : No symptoms or risks identified at this time. ROS: 20:15 Constitutional: Negative for fever, chills, and weight loss, Eyes: Negative for injury, snw pain, redness, and discharge, ENT: Negative for injury, pain, and discharge, Neck: Negative for injury, pain, and swelling, Cardiovascular: Negative for chest pain, palpitations, and edema, Respiratory: Negative for shortness of breath, cough, wheezing, and pleuritic chest pain, Abdomen/GI: Negative for abdominal pain, nausea, vomiting, diarrhea, and constipation, Back: Negative for injury and pain, MS/Extremity: Negative for injury and deformity, Skin: Negative for injury, rash, and discoloration, Neuro: Negative for headache, weakness, numbness, tingling, and seizure. 20:15 : Positive for "feels hot down there", denies dysuria, denies fever. Exam: 20:14 Constitutional: This is a well developed, well nourished patient who is awake, alert, snw and in no acute distress. Head/Face: Normocephalic, atraumatic. Eyes: Pupils equal round and reactive to light, extra-ocular motions intact. Lids and lashes normal. Conjunctiva and sclera are non-icteric and not injected. Cornea within normal limits. Periorbital areas with no swelling, redness, or edema. ENT: Nares patent. No nasal discharge, no septal abnormalities noted. Tympanic membranes are normal and external auditory canals are clear. Oropharynx with no redness, swelling, or masses, exudates, or evidence of obstruction, uvula midline. Mucous membranes moist. Neck: Trachea midline, no thyromegaly or masses palpated, and no cervical lymphadenopathy. Supple, full range of motion without nuchal rigidity, or vertebral point tenderness. No Meningismus. Chest/axilla: Normal chest wall appearance and motion. Nontender with no deformity. No lesions are appreciated. 20:14 Respiratory: Lungs have equal breath sounds bilaterally, clear to auscultation and percussion. No rales, rhonchi or wheezes noted. No increased work of breathing, no retractions or nasal flaring. Abdomen/GI: Soft, non-tender, with normal bowel sounds. No distension or tympany. No guarding or rebound. No evidence of tenderness throughout. Back: No spinal tenderness. No costovertebral tenderness. Full range of motion. Skin: Warm, dry with normal turgor. Normal color with no rashes, no lesions, and no evidence of cellulitis. MS/ Extremity: Pulses equal, no cyanosis. Neurovascular intact. Full, normal range of motion. Neuro: Awake and alert, GCS 15, oriented to person, place, time, and situation. Cranial nerves II-XII grossly intact. Motor strength 5/5 in all extremities. Sensory grossly intact. Cerebellar exam normal. Normal gait. 20:14 Cardiovascular: Rate: tachycardic, Rhythm: regular, Heart sounds: normal. Vital Signs: 20:09 BP 140 / 111; Pulse 114; Resp 16 S; Temp 98.4(O); Pulse Ox 100% on R/A; Weight 52.16 kg bb (R); Height 5 ft. 3 in. (160.02 cm) (R); Pain 10/10; 20:35 BP 150 / 109; Pulse 109; Resp 16; Pulse Ox 99% on R/A; lp1 20:09 Body Mass Index 20.37 (52.16 kg, 160.02 cm) bb MDM: 20:03 Patient medically screened. snw 20:24 Data reviewed: vital signs, nurses notes. Data interpreted: Pulse oximetry: on room air snw is 100 %. Interpretation: normal. Counseling: I had a detailed discussion with the patient and/or guardian regarding: the historical points, exam findings, and any diagnostic results supporting the discharge/admit diagnosis, the presence of at least one elevated blood pressure reading (>120/80) during this emergency department visit, the need for outpatient follow up, to return to the emergency department if symptoms worsen or persist or if there are any questions or concerns that arise at home. Special discussion: I have referred the patient to see his PCP for further evaluation of high blood pressure. Based on the history and exam findings, there is no indication for further emergent testing or inpatient evaluation. I discussed with the patient/guardian the need to see the primary care provider for further evaluation of the symptoms. 07/04 20:12 Order name: Urine Culture snw 07/04 20:12 Order name: Urine Microscopic Only; Complete Time: 20:37 snw 07/04 20:12 Order name: Urine Test (obtain specimen); Complete Time: 20:14 snw 07/04 20:12 Order name: Urine Dipstick-Ancillary (obtain specimen); Complete Time: 20:14 snw 07/04 20:15 Order name: Urine Dipstick--Ancillary (enter results); Complete Time: 20:37 mw2 07/04 20:15 Order name: Urine --Ancillary (enter results); Complete Time: 20:37 mw2 Administered Medications: No medications were administered Disposition: 23:09 Co-signature as Attending Physician, Konstantin Fritz MD. pkl Disposition: 07/04/18 20:19 Discharged to Home. Impression: Other stimulant abuse, Paresthesia of skin, Essential (primary) hypertension. - Condition is Stable. - Discharge Instructions: Hypertension, Paresthesia, How to Take a Sitz Bath, What You Need To Know About Illegal Drug Use and Dependence, Youth. - Prescriptions for Lotrimin AF 1 % Topical cream - apply 1 application by TOPICAL route 2 times per day; 50 gram. - Medication Reconciliation Form, Thank You Letter, Antibiotic Education, Prescription Opioid Use form. - Notes: please use baking soda with sitz baths Signatures: Dispatcher [employer] EDMS Konstantin Fritz MD MD pkl Naina Verma, LUNCH TRUCK OPERATOR-C LUNCH TRUCK OPERATOR-Csnw Faye Leblanc, RN RN bb Lachelle Peng, RN RN lp1 Corrections: (The following items were deleted from the chart) 20:26 20:19 07/04/2018 20:19 Discharged to Home. Impression: Other stimulant abuse; snw Paresthesia of skin. Condition is Stable. Forms are Medication Reconciliation Form, Thank You Letter, Antibiotic Education, Prescription Opioid Use. snw 20:36 20:26 07/04/2018 20:19 Discharged to Home. Impression: Other stimulant abuse; lp1 Paresthesia of skin; Essential (primary) hypertension. Condition is Stable. Discharge Instructions: Hypertension, Paresthesia, How to Take a Sitz Bath, What You Need To Know About Illegal Drug Use and Dependence, Youth. Forms are Medication Reconciliation Form, Thank You Letter, Antibiotic Education, Prescription Opioid Use. snw
[2018-07-04 20:30] LABS: Urine Blood NEGATIVE (NEG); Urine Glucose NEGATIVE (NEG); Urine Protein NEGATIVE (NEG); Urine Specific Gravity 1.015 (1.005-1.030); Urine pH 7.5 (5.0-7.0)
[2018-07-04 20:32] LABS: Urine Bacteria <20 /HPF (<20); Urine Culture Reflex Order NOT NEEDED; Urine RBC NONE SEEN /HPF (NONE SEEN)
[2018-07-04 20:42] VITALS: TEMP 98.4
[2018-07-04 20:43] VITALS: BP 150/109; O2SAT 99
== END 2018-07-04 20:36 | disposition home or self-care (01) ==
LOC: ER 19:54
DX: F15.10 Other stimulant abuse, uncomplicated (principal); I10 Essential (primary) hypertension; F17.210 Nicotine dependence, cigarettes, uncomplicated
CPT/HCPCS: 81003; 81015; 81025; 87086; 87088; 99283

== ENCOUNTER 2018-09-05 21:30 | Emergency (ER) | payer SELFPAY ==
[2018-09-05 23:04] LABS: Absolute Lymphocytes (CBC) 3.8 K/uL (0.7-4.9); Absolute Monocytes 0.6 K/uL (0.1-1.3); Absolute Neutrophil 6.1 K/uL (1.8-8.0); Basophils % 0.3 % (0-1.3); Hematocrit 33.4 % (36.0-45.0); Lymphocytes % 35.9 % (15.3-44.8); MPV 7.3 fL (7.6-11.3); Monocytes % 5.3 % (3.3-12.3); RBC Red Blood Cell Count 3.92 M/uL (3.86-4.86)
[2018-09-05 23:40] LABS: Urine Blood TRACE (NEG); Urine Glucose NEGATIVE (NEG); Urine Protein NEGATIVE (NEG); Urine Specific Gravity 1.025 (1.005-1.030)
[2018-09-05 23:40] LABS: Urine Bacteria <20 /HPF (<20); Urine Culture Reflex Order NOT NEEDED; Urine RBC <5 /HPF (NONE SEEN)
[2018-09-06 00:21] LABS: ALT/SGPT 19 U/L (12-78); AST/SGOT 13 U/L (15-37); Albumin 3.8 g/dL (3.4-5.0); Alkaline Phosphatase 39 U/L (45-117); BUN Blood Urea Nitrogen 9 mg/dL (7-18); Bicarbonate 29 mmol/L (21-32); Bilirubin Total 0.2 mg/dL (0.2-1.0); Glucose Level 76 mg/dL (74-106); HCG, Quantitative 6744 mIU/mL (1-3); Potassium 3.3 mmol/L (3.5-5.1); Protein, Total 6.9 g/dL (6.4-8.2); Sodium Level 140 mmol/L (136-145)
[2018-09-06 00:22] LABS: Barbiturates NEGATIVE (NEGATIVE); Benzodiazepines POSITIVE (NEGATIVE); Cocaine NEGATIVE (NEGATIVE); METHAMPHETAM POSITIVE (NEGATIVE); Methadone NEGATIVE (NEGATIVE); Opiates POSITIVE (NEGATIVE); Phencyclidine NEGATIVE (NEGATIVE); THC Cannibis NEGATIVE (NEGATIVE)
--- NOTE | 2018-09-06 02:58 | ER ---
Nurse's Notes [facility] Name: Lianne Duval Age: 27 yrs Sex: Female : 1990 Arrival Date: 09/05/2018 Time: 21:30 Bed 8 Private MD: Diagnosis: Threatened miscarriage Presentation: 09/05 21:38 Presenting complaint: Patient states: Heavy vaginal bleeding that started 1 week ago aj and increased today, with clots. Transition of care: patient was not received from another setting of care. Onset of symptoms was August 30, 2018. Risk Assessment: Do you want to hurt yourself or someone else? Patient reports no desire to harm self or others. Initial Sepsis Screen: Does the patient meet any 2 criteria? No. Patient's initial sepsis screen is negative. Does the patient have a suspected source of infection? No. Patient's initial sepsis screen is negative. Care prior to arrival: None. 21:38 Method Of Arrival: Ambulatory aj 21:38 Acuity: JORI 3 aj Triage Assessment: 21:39 General: Appears in no apparent distress. comfortable, Behavior is calm, cooperative, aj appropriate for age. Pain: Denies pain. Neuro: Level of Consciousness is awake, alert, obeys commands, Oriented to person, place, time, situation, Appropriate for age. Respiratory: Airway is patent Respiratory effort is even, unlabored, Respiratory pattern is regular, symmetrical. : Reports vaginal bleeding that is with clots, heavy flow. Derm: Skin is intact, is healthy with good turgor, Skin is pink, warm \T\ dry. normal. 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 unable to give accurate history wa Historical: - Allergies: 21:39 No Known Allergies; aj - Home Meds: 21:39 None [Active]; aj - PMHx: 21:39 Depression; HYPOGLYCEMIA; aj - PSHx: 21:39 ; aj - Immunization history:: Adult Immunizations up to date. - Social history:: Smoking status: Patient uses tobacco products, smokes one-half pack cigarettes per day, Patient uses street drugs, Methamphetamine (Meth) Xanax and Suboxone. - Ebola Screening: : Patient negative for fever greater than or equal to 101.5 degrees Fahrenheit, and additional compatible Ebola Virus Disease symptoms Patient denies exposure to infectious person Patient denies travel to an Ebola-affected area in the 21 days before illness onset No symptoms or risks identified at this time. - Family history:: not pertinent. - Hospitalizations: : No recent hospitalization is reported. Screenin:12 Abuse screen: Denies threats or abuse. Nutritional screening: No deficits noted. jd3 Tuberculosis screening: No symptoms or risk factors identified. Fall Risk Ambulatory Aid- None/Bed Rest/Nurse Assist (0 pts). Gait- Normal/Bed Rest/Wheelchair (0 pts) Mental Status- Overestimates/Forgets Limitations (15 pts.). Total Dunlap Fall Scale indicates No Risk (0-24 pts). Assessment: 22:12 General: Appears in no apparent distress. uncomfortable, Behavior is calm, cooperative, jd3 appropriate for age. Pain: Complains of pain in suprapubic area Quality of pain is described as aching. Neuro: Level of Consciousness is awake, alert, obeys commands, Oriented to person, place, time, situation, Appropriate for age. Cardiovascular: Capillary refill < 3 seconds Patient's skin is warm and dry. Respiratory: Airway is patent Respiratory effort is even, unlabored, Respiratory pattern is regular, symmetrical. GI: Abdomen is flat, Bowel sounds present X 4 quads. Abd is soft Abdomen is tender to palpation in suprapubic area. : Reports vaginal bleeding that is with clots, heavy flow. EENT: No signs and/or symptoms were reported regarding the EENT system. Derm: Skin is intact, Skin is dry, Skin is normal, Skin temperature is warm. Musculoskeletal: Circulation, motion, and sensation intact. Range of motion: intact in all extremities. 22:55 Reassessment: Patient appears in no apparent distress at this time. No changes from jd3 previously documented assessment. Patient and/or family updated on plan of care and expected duration. Pain level reassessed. Patient is alert, oriented x 3, equal unlabored respirations, skin warm/dry/pink. 09/06 00:00 Reassessment: Patient appears in no apparent distress at this time. No changes from jd3 previously documented assessment. Patient and/or family updated on plan of care and expected duration. Pain level reassessed. Patient is alert, oriented x 3, equal unlabored respirations, skin warm/dry/pink. awaiting ultrasound. 00:55 Reassessment: Patient and/or family updated on plan of care and expected duration. Pain ea level reassessed. Ultrasound at bedside. 01:14 Reassessment: Patient appears in no apparent distress at this time. Patient and/or jd3 family updated on plan of care and expected duration. Pain level reassessed. Patient is alert, oriented x 3, equal unlabored respirations, skin warm/dry/pink. ultrasound at bedside. 02:17 Reassessment: Patient appears in no apparent distress at this time. Patient and/or jd3 family updated on plan of care and expected duration. Pain level reassessed. Patient is alert, oriented x 3, equal unlabored respirations, skin warm/dry/pink. awaiting results. 03:06 Reassessment: Patient appears in no apparent distress at this time. Patient and/or jd3 family updated on plan of care and expected duration. Pain level reassessed. Patient is alert, oriented x 3, equal unlabored respirations, skin warm/dry/pink. 04:05 Reassessment: Patient appears in no apparent distress at this time. No changes from jd3 previously documented assessment. Patient and/or family updated on plan of care and expected duration. Pain level reassessed. Patient is alert, oriented x 3, equal unlabored respirations, skin warm/dry/pink. 04:41 Reassessment: Patient appears in no apparent distress at this time. No changes from jd3 previously documented assessment. Patient and/or family updated on plan of care and expected duration. Pain level reassessed. Patient is alert, oriented x 3, equal unlabored respirations, skin warm/dry/pink. pt and significant other reported understanding of discharge instructions. Vital Signs: 09/05 21:39 BP 123 / 93; Pulse 112; Resp 20; Temp 98.6; Pulse Ox 100% on R/A; Weight 49.44 kg; aj Height 5 ft. 3 in. (160.02 cm); 22:55 BP 131 / 91; Pulse 110; Resp 19 S; Pulse Ox 100% on R/A; jd3 23:56 Pulse 105; Resp 16 S; Pulse Ox 100% on R/A; jd3 09/06 01:15 BP 122 / 82; Pulse 61; Resp 15 S; Pulse Ox 98% on R/A; jd3 02:17 Pulse 88; Resp 14 S; Pulse Ox 100% on R/A; jd3 03:06 BP 107 / 71; Pulse 80; Resp 15 S; Pulse Ox 100% on R/A; jd3 04:32 BP 119 / 82; Pulse 85; Resp 16; Pulse Ox 100% ; ea 09/05 21:39 Body Mass Index 19.31 (49.44 kg, 160.02 cm) ED Course: 09/05 21:30 Patient arrived in ED. ds1 21:39 Triage completed. 21:39 Arm band placed on right wrist. Patient placed in waiting room, Patient notified of wait time. 22:02 Luis Albarran MD is Attending Physician. umair 22:07 Gerardo Sutherland RN is Primary Nurse. jd3 22:14 Patient has correct armband on for positive identification. Placed in gown. Bed in low jd3 position. Call light in reach. Side rails up X 1. Adult w/ patient. 22:37 Inserted saline lock: 20 gauge in right antecubital area, using aseptic technique. jd3 Blood collected. 09/06 01:25 Ultrasound completed. Patient tolerated well. Notified ED Physician haley. sg3 01:32 US Pelvis Complete In Process Unspecified. EDLA 02:58 Yvonne Mercado MD is Referral Physician. wa 04:38 No provider procedures requiring assistance completed. IV discontinued, intact, jd3 bleeding controlled, No redness/swelling at site. Pressure dressing applied. Administered Medications: 03:47 Drug: Rho D Immune Globulin 300 mcg Route: IM; Site: right deltoid; ea 04:34 Follow up: Response: No adverse reaction jose Outcome: 02:58 Discharge ordered by . wa 04:39 Discharged to home via wheelchair, with significant other. jd3 04:39 Condition: stable 04:39 Discharge instructions given to patient, significant other, Instructed on discharge instructions, follow up and referral plans. Demonstrated understanding of instructions, follow-up care. 04:55 Patient left the ED. jd3 Signatures: Dispatcher [employer] EDMS Stacia Levine RN RN aj Sanford, Demi ds1 Hazel Reynaga RN RN ea Appiah, William, MD MD wa Davies, Jonathon, RN RN jd3 Godinez, Sarah sg3 Corrections: (The following items were deleted from the chart) 09/05 21:42 21:39 Arm band placed on right wrist. Patient placed in an exam room, aj lauren 09/06 01:15 01:14 Reassessment: Patient appears in no apparent distress at this time. No changes jd3 from previously documented assessment. Patient and/or family updated on plan of care and expected duration. Pain level reassessed. Patient is alert, oriented x 3, equal unlabored respirations, skin warm/dry/pink. ultrasound at bedside jd3 04:41 04:05 Reassessment: Patient appears in no apparent distress at this time. No changes jd3 from previously documented assessment. Patient and/or family updated on plan of care and expected duration. Pain level reassessed. Patient is alert, oriented x 3, equal unlabored respirations, skin warm/dry/pink. pt and significant other reported understanding of discharge instructions. jd3 04:41 04:41 Reassessment: Patient appears in no apparent distress at this time. No changes jd3 from previously documented assessment. Patient and/or family updated on plan of care and expected duration. Pain level reassessed. Patient is alert, oriented x 3, equal unlabored respirations, skin warm/dry/pink. pt and significant other reported understanding of discharge instructions. jd3
--- NOTE | 2018-09-06 02:58 | EDPHYS ---
Physician Documentation [facility] Name: Lianne Duval Age: 27 yrs Sex: Female : 1990 Arrival Date: 09/05/2018 Time: 21:30 Bed 8 Private MD: ED Physician Luis Albarran HPI: 09/05 22:10 This 27 yrs old Female presents to ER via Ambulatory with complaints of wa Vaginal Bleeding - +. 22:10 The patient presents with vaginal bleeding that is heavy. Onset: The symptoms/episode wa began/occurred 5 day(s) ago. Modifying factors: The symptoms are alleviated by nothing, the symptoms are aggravated by nothing. Associated signs and symptoms: Pertinent positives: cramping, Pertinent negatives: dysuria, fever, nausea, vaginal discharge, vomiting. Severity of symptoms: At their worst the symptoms were moderate, in the emergency department the symptoms are actually worse, moderately. The patient is sexually active, does not use protection during intercourse. The patient has experienced similar episodes in the past, a few times. The patient has not recently seen a physician. 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 unable to give accurate history wa Historical: - Allergies: 21:39 No Known Allergies; aj - Home Meds: 21:39 None [Active]; aj - PMHx: 21:39 Depression; HYPOGLYCEMIA; aj - PSHx: 21:39 ; aj - Immunization history:: Adult Immunizations up to date. - Social history:: Smoking status: Patient uses tobacco products, smokes one-half pack cigarettes per day, Patient uses street drugs, Methamphetamine (Meth) Xanax and Suboxone. - Ebola Screening: : Patient negative for fever greater than or equal to 101.5 degrees Fahrenheit, and additional compatible Ebola Virus Disease symptoms Patient denies exposure to infectious person Patient denies travel to an Ebola-affected area in the 21 days before illness onset No symptoms or risks identified at this time. - Family history:: not pertinent. - Hospitalizations: : No recent hospitalization is reported. ROS: 22:12 Positive for pelvic pain, vaginal bleeding. wa 22:12 Constitutional: Negative for fever, chills, and weight loss, Eyes: Negative for injury, pain, redness, and discharge, ENT: Negative for injury, pain, and discharge, Neck: Negative for injury, pain, and swelling, Cardiovascular: Negative for chest pain, palpitations, and edema, Respiratory: Negative for shortness of breath, cough, wheezing, and pleuritic chest pain, Abdomen/GI: Negative for abdominal pain, nausea, vomiting, diarrhea, and constipation, Back: Negative for injury and pain, MS/Extremity: Negative for injury and deformity, Skin: Negative for injury, rash, and discoloration, Neuro: Negative for headache, weakness, numbness, tingling, and seizure. 22:12 All other systems are negative. Exam: 22:12 Constitutional: This is a well developed, well nourished patient who is awake, alert, wa and in no acute distress. Head/Face: Normocephalic, atraumatic. Eyes: Pupils equal round and reactive to light, extra-ocular motions intact. Lids and lashes normal. Conjunctiva and sclera are non-icteric and not injected. Cornea within normal limits. Periorbital areas with no swelling, redness, or edema. ENT: Nares patent. No nasal discharge, no septal abnormalities noted. Tympanic membranes are normal and external auditory canals are clear. Oropharynx with no redness, swelling, or masses, exudates, or evidence of obstruction, uvula midline. Mucous membranes moist. Neck: Trachea midline, no thyromegaly or masses palpated, and no cervical lymphadenopathy. Supple, full range of motion without nuchal rigidity, or vertebral point tenderness. No Meningismus. Chest/axilla: Normal chest wall appearance and motion. Nontender with no deformity. No lesions are appreciated. Cardiovascular: Regular rate and rhythm with a normal S1 and S2. No gallops, murmurs, or rubs. Normal PMI, no JVD. No pulse deficits. Respiratory: Lungs have equal breath sounds bilaterally, clear to auscultation and percussion. No rales, rhonchi or wheezes noted. No increased work of breathing, no retractions or nasal flaring. Back: No spinal tenderness. No costovertebral tenderness. Full range of motion. Skin: Warm, dry with normal turgor. Normal color with no rashes, no lesions, and no evidence of cellulitis. MS/ Extremity: Pulses equal, no cyanosis. Neurovascular intact. Full, normal range of motion. Neuro: Awake and alert, GCS 15, oriented to person, place, time, and situation. Cranial nerves II-XII grossly intact. Motor strength 5/5 in all extremities. Sensory grossly intact. Cerebellar exam normal. Normal gait. Psych: Awake, alert, with orientation to person, place and time. Behavior, mood, and affect are within normal limits. 22:12 Abdomen/GI: Inspection: abdomen appears normal, Bowel sounds: normal, Palpation: mild abdominal tenderness, in the suprapubic area. 22:21 : CVA tenderness, is absent, Pelvic Exam: External exam: is normal, Speculum exam: wa moderate bleeding, blood clots in vaginal vault, os that is closed, the lead nuclear medicine technologist was present for the exam. Vital Signs: 21:39 BP 123 / 93; Pulse 112; Resp 20; Temp 98.6; Pulse Ox 100% on R/A; Weight 49.44 kg; aj Height 5 ft. 3 in. (160.02 cm); 22:55 BP 131 / 91; Pulse 110; Resp 19 S; Pulse Ox 100% on R/A; jd3 23:56 Pulse 105; Resp 16 S; Pulse Ox 100% on R/A; jd3 01/ 01:15 BP 122 / 82; Pulse 61; Resp 15 S; Pulse Ox 98% on R/A; jd3 02:17 Pulse 88; Resp 14 S; Pulse Ox 100% on R/A; jd3 03:06 BP 107 / 71; Pulse 80; Resp 15 S; Pulse Ox 100% on R/A; jd3 04:32 BP 119 / 82; Pulse 85; Resp 16; Pulse Ox 100% ; ea 09/05 21:39 Body Mass Index 19.31 (49.44 kg, 160.02 cm) aj MDM: 09/05 22:02 Patient medically screened. wa 22:13 Differential diagnosis: vag bleed. will eval. wa 09/06 02:03 Data reviewed: vital signs, nurses notes, lab test result(s), radiologic studies. Test wa interpretation: by ED physician or midlevel provider: anemia 11.7/33.4. O Neg blood. quant HC. 02:07 Test interpretation: by ED physician or midlevel provider: UDS noted for benzos, wa opiates, meth. 02:57 Test interpretation: by ED physician or midlevel provider: US noted irregularly shaped pr gestational sac in the uterus. . Response to treatment: the patient's symptoms have markedly improved after treatment. 09/05 22:08 Order name: Quantitative Hcg; Complete Time: 00:25 pr 09/05 22:08 Order name: Abo/rh Typing pr 09/05 22:08 Order name: CBC with Diff; Complete Time: 00:25 pr 09/05 22:08 Order name: CMP; Complete Time: 00:25 pr 09/05 22:08 Order name: UDS; Complete Time: 00:25 pr 09/05 22:08 Order name: Urine Microscopic Only; Complete Time: 00:25 pr 09/05 22:52 Order name: Urine Dipstick--Ancillary (enter results); Complete Time: 00:25 [facility] 09/05 22:52 Order name: Urine --Ancillary (enter results); Complete Time: 00:25 [facility] 09/06 00:00 Order name: US Pelvis Complete pr 09/06 01:02 Order name: Rh Typing [facility] 09/06 01:02 Order name: Antibody Screen [facility] 09/06 01:02 Order name: Fetalscreen [facility] 09/06 01:02 Order name: Cord Rh type [facility] 09/06 01:02 Order name: Rhogam [facility] 09/05 22:08 Order name: Urine Test (obtain specimen); Complete Time: 22:33 pr 09/05 22:08 Order name: IV Saline Lock; Complete Time: 22:45 pr 09/05 22:08 Order name: Labs collected and sent; Complete Time: 22:45 pr 09/05 22:08 Order name: NPO; Complete Time: 22:12 pr 09/05 22:08 Order name: Urine Dipstick-Ancillary (obtain specimen); Complete Time: 22:33 pr 09/05 22:08 Order name: Pelvic Exam Setup; Complete Time: 22:33 pr Administered Medications: 03:47 Drug: Rho D Immune Globulin 300 mcg Route: IM; Site: right deltoid; ea 04:34 Follow up: Response: No adverse reaction ea Disposition: 09/06/18 02:58 Discharged to Home. Impression: Threatened miscarriage. - Condition is Stable. - Discharge Instructions: Threatened Miscarriage, [id number]. - Medication Reconciliation Form, Thank You Letter, Antibiotic Education, Prescription Opioid Use form. - Follow up: Yvonne Mercado MD; When: 1 - 2 days; Reason: Recheck today's complaints. - Problem is new. - Symptoms have improved. - Notes: follow up with the PILOT CAN ROUTER doctor above as discussed Signatures: Dispatcher [employer] Stacia Aquino RN Hazel Younger RN RN ea Appiah, William, MD MD wa Davies, Jonathon, RN RN jd3 Corrections: (The following items were deleted from the chart) 04:55 02:58 09/06/2018 02:58 Discharged to Home. Impression: Threatened miscarriage. jd3 Condition is Stable. Forms are Medication Reconciliation Form, Thank You Letter, Antibiotic Education, Prescription Opioid Use. Follow up: Yvonne Mercado; When: 1 - 2 days; Reason: Recheck today's complaints. Problem is new. Symptoms have improved. umair
[2018-09-06 05:00] VITALS: TEMP 98.6
[2018-09-06 05:04] VITALS: O2SAT 100
[2018-09-06 05:07] VITALS: BP 119/82
--- NOTE | 2018-09-06 10:17 | RAD REPORT ---
EXAM DESCRIPTION: US - Pelvis Complete - 09/06/2018 1:32 am CLINICAL HISTORY: VAGINAL BLEEDING COMPARISON: No comparisons FINDINGS: There is an irregularly-shaped gestational sac seen in the endometrial canal, however in t he lower uterine segment. No normal yolk sac or embryo is seen. The maternal adnexa and ovaries are within normal limits. Normal Doppler blood flow was demonstrated to both ovaries. IMPRESSION: A normal IUP is not seen. Irregularly-shaped gestational sac is seen in the lower uterin e segment of the endometrium. Slightly, this represents an inevitable spontaneous . Advise serial HCG levels until normalization.
== END 2018-09-06 04:55 | disposition home or self-care (01) ==
LOC: ER 21:30
DX: O20.0 Threatened abortion (principal); Z3A.00 Weeks of gestation of pregnancy not specified
CPT/HCPCS: 36415; 76856; 80053; 80307; 81003; 81015; 81025; 84702; 85025; 86850; 86900; 86901; 96372; 99284; J2790

== ENCOUNTER 2018-10-17 20:27 | Emergency (ER) | payer SELFPAY ==
[2018-10-17 21:37] LABS: Absolute Lymphocytes (CBC) 3.4 K/uL (0.7-4.9); Absolute Monocytes 0.5 K/uL (0.1-1.3); Absolute Neutrophil 4.2 K/uL (1.8-8.0); Basophils % 0.4 % (0-1.3); Eosinophils % 1.1 % (0-4.4); Hematocrit 26.3 % (36.0-45.0); Lymphocytes % 41.3 % (15.3-44.8); MPV 7.4 fL (7.6-11.3); Monocytes % 6.5 % (3.3-12.3); RBC Red Blood Cell Count 3.51 M/uL (3.86-4.86)
[2018-10-17 21:54] LABS: BUN Blood Urea Nitrogen 15 mg/dL (7-18); Bicarbonate 30 mmol/L (21-32); Glucose Level 92 mg/dL (74-106); HCG, Quantitative 12 mIU/mL (1-3); Potassium 3.6 mmol/L (3.5-5.1); Sodium Level 141 mmol/L (136-145)
[2018-10-17 22:50] LABS: Urine Blood 3+ (NEG); Urine Glucose NEGATIVE (NEG); Urine Protein TRACE (NEG); Urine Specific Gravity 1.015 (1.005-1.030)
--- NOTE | 2018-10-18 01:37 | ER ---
Nurse's Notes [facility] Name: Lianne Duval Age: 28 yrs Sex: Female : 1990 Arrival Date: 10/17/2018 Time: 20:28 Bed 27 Private MD: Diagnosis: Spontaneous Presentation: 10/17 20:37 Presenting complaint: Patient states: I haven't stopped bleeding since September 05, 2018. ed1 I had a threatened miscarriage and I am bleeding really bad. Transition of care: patient was not received from another setting of care. Onset of symptoms was September 05, 2018. Risk Assessment: Do you want to hurt yourself or someone else? Patient reports no desire to harm self or others. Initial Sepsis Screen: Does the patient meet any 2 criteria? No. Patient's initial sepsis screen is negative. Does the patient have a suspected source of infection? No. Patient's initial sepsis screen is negative. Care prior to arrival: None. 20:37 Method Of Arrival: Ambulatory ed1 20:37 Acuity: JORI 3 ed1 Triage Assessment: 20:39 General: Appears uncomfortable, Behavior is calm, cooperative. Pain: Complains of pain ed1 in right lower quadrant Pain does not radiate. Pain currently is 8 out of 10 on a pain scale. Quality of pain is described as pressure, Pain began 2-3 days ago. : Reports vaginal bleeding that is with clots, heavy flow since September 05, 2018. 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 It has been more than one year since last vaccine. - Social history:: Smoking status: Patient uses tobacco products, smokes one pack cigarettes per day. - Ebola Screening: : Patient negative for fever greater than or equal to 101.5 degrees Fahrenheit, and additional compatible Ebola Virus Disease symptoms Patient denies exposure to infectious person Patient denies travel to an Ebola-affected area in the 21 days before illness onset. Screenin:04 Abuse screen: Denies threats or abuse. Denies injuries from another. Nutritional mg2 screening: No deficits noted. Tuberculosis screening: No symptoms or risk factors identified. Fall Risk IV access (20 points). Assessment: 21:02 General: Appears in no apparent distress. comfortable, Behavior is calm, cooperative. mg2 Pain: Complains of pain in vaginal area Pain does not radiate. Pain currently is 10 out of 10 on a pain scale. Quality of pain is described as sore Pain began gradually. Neuro: Level of Consciousness is awake, alert, obeys commands, Oriented to person, place, time, situation. Cardiovascular: Capillary refill < 3 seconds Patient's skin is warm and dry. Respiratory: Airway is patent Respiratory effort is even, unlabored, Respiratory pattern is regular, symmetrical. GI: Reports rectal bleeding. : Urine is blood tinged, Reports vaginal bleeding that is with clots, moderate flow, since 1 month now. EENT: No signs and/or symptoms were reported regarding the EENT system. Derm: Skin is intact, is healthy with good turgor, Skin is pink, warm \T\ dry. normal. Musculoskeletal: Circulation, motion, and sensation intact. Capillary refill < 3 seconds. 23:18 Reassessment: Patient appears in no apparent distress at this time. Patient and/or mg2 family updated on plan of care and expected duration. Pain level reassessed. Patient is alert, oriented x 3, equal unlabored respirations, skin warm/dry/pink. 10/18 00:15 Reassessment: pelvic exam done by MARIBEL Gordon and JEFFERY Self, patient [place] [facility]. 01:50 Reassessment: Patient appears in no apparent distress at this time. patient denies mg2 dizziness or weakness. discharged in good condition. Vital Signs: 10/17 20:39 BP 129 / 86; Pulse 110; Resp 16; Temp 98; Pulse Ox 100% on R/A; Weight 47.17 kg; Height ed1 5 ft. 3 in. (160.02 cm); Pain 0/10; 21:05 BP 124 / 84; Pulse 95; Resp 18; Pulse Ox 100% on R/A; Pain 10/10; mg2 10/18 00:20 BP 120 / 90; Pulse 100; Resp 18; Pulse Ox 100% on R/A; Pain 0/10; mg2 01:40 BP 120 / 80; Pulse 98; Resp 18; Pulse Ox 100% on R/A; Pain 0/10; mg2 10/17 20:39 Body Mass Index 18.42 (47.17 kg, 160.02 cm) ed1 ED Course: 10/17 20:28 Patient arrived in ED. mr 20:38 Triage completed. ed1 20:39 Arm band placed on right wrist. ed1 20:43 Lauri Rodriguez RN is Primary Nurse. mg2 20:45 Evan Barraza PA is PHCP. jr8 20:45 Riley Perkins MD is Attending Physician. jr8 21:04 No provider procedures requiring assistance completed. Inserted saline lock: 20 gauge mg2 in right antecubital area, using aseptic technique. Blood collected. 21:05 Patient has correct armband on for positive identification. Pulse ox on. NIBP on. Door mg2 closed. 22:05 US Transvaginal Ob In Process Unspecified. EDMS 22:08 Ultrasound completed. Patient tolerated well. sg3 02 01:20 Repeat lab(s) drawn. by hi, sent to lab. mg2 01:50 IV discontinued, intact, bleeding controlled, No redness/swelling at site. Pressure mg2 dressing applied. Administered Medications: No medications were administered Outcome: 01:36 Discharge ordered by . jr8 01:51 Discharged to home ambulatory. mg2 01:51 Condition: stable 01:51 Discharge instructions given to patient, Instructed on discharge instructions, follow up and referral plans. medication usage, Demonstrated understanding of instructions, follow-up care, medications, Prescriptions given X 2. 01:51 Patient left the ED. mg2 Signatures: Dispatcher [employer] CHELSEAWY Johanna Augustin mr FalkDee, RN RN ed1 Evan Barraza PA PA jrConstance Brito sg3 Lauri Rodriguez, WENDY RN mg2
--- NOTE | 2018-10-18 01:37 | EDPHYS ---
Physician Documentation [facility] Name: Lianne Duval Age: 28 yrs Sex: Female : 1990 Arrival Date: 10/17/2018 Time: 20:28 Bed 27 Private MD: ED Physician Riley Perkins HPI: 10/17 21:20 This 28 yrs old Female presents to ER via Ambulatory with complaints of jr8 Vaginal Bleeding. 21:20 The patient presents with vaginal bleeding that is moderate. Onset: The jr8 symptoms/episode began/occurred gradually, 1 month(s) ago. Modifying factors: The symptoms are alleviated by nothing, the symptoms are aggravated by nothing. Associated signs and symptoms: The patient has no apparent associated signs or symptoms. Severity of symptoms: At their worst the symptoms were mild, in the emergency department the symptoms are actually worse. The patient has not experienced similar symptoms in the past. The patient has not recently seen a physician. Patient had positive IUP back in early September. Was seen in ED for spotting. Diagnosed with threatened miscarriage at that time. Never followed up. Continued to have spotting but now staring today had increased bleeding with clots. Patient also complaining of lower vaginal/pelvic pain . 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 It has been more than one year since last vaccine. - Social history:: Smoking status: Patient uses tobacco products, smokes one pack cigarettes per day. - Ebola Screening: : Patient negative for fever greater than or equal to 101.5 degrees Fahrenheit, and additional compatible Ebola Virus Disease symptoms Patient denies exposure to infectious person Patient denies travel to an Ebola-affected area in the 21 days before illness onset. ROS: 21:20 Eyes: Negative for injury, pain, redness, and discharge, ENT: Negative for injury, jr8 pain, and discharge, Neck: Negative for injury, pain, and swelling, Cardiovascular: Negative for chest pain, palpitations, and edema, Respiratory: Negative for shortness of breath, cough, wheezing, and pleuritic chest pain, Abdomen/GI: Negative for abdominal pain, nausea, vomiting, diarrhea, and constipation, Back: Negative for injury and pain, MS/Extremity: Negative for injury and deformity, Skin: Negative for injury, rash, and discoloration, Neuro: Negative for headache, weakness, numbness, tingling, and seizure. 21:20 : Positive for pelvic pain, vaginal bleeding, Negative for vaginal discharge, vaginal itching. Exam: 21:20 Eyes: Pupils equal round and reactive to light, extra-ocular motions intact. Lids and jr8 lashes normal. Conjunctiva and sclera are non-icteric and not injected. Cornea within normal limits. Periorbital areas with no swelling, redness, or edema. ENT: Nares patent. No nasal discharge, no septal abnormalities noted. Tympanic membranes are normal and external auditory canals are clear. Oropharynx with no redness, swelling, or masses, exudates, or evidence of obstruction, uvula midline. Mucous membranes moist. Neck: Trachea midline, no thyromegaly or masses palpated, and no cervical lymphadenopathy. Supple, full range of motion without nuchal rigidity, or vertebral point tenderness. No Meningismus. Cardiovascular: Regular rate and rhythm with a normal S1 and S2. No gallops, murmurs, or rubs. Normal PMI, no JVD. No pulse deficits. Respiratory: Lungs have equal breath sounds bilaterally, clear to auscultation and percussion. No rales, rhonchi or wheezes noted. No increased work of breathing, no retractions or nasal flaring. Abdomen/GI: Soft, non-tender, with normal bowel sounds. No distension or tympany. No guarding or rebound. No evidence of tenderness throughout. Back: No spinal tenderness. No costovertebral tenderness. Full range of motion. Skin: Warm, dry with normal turgor. Normal color with no rashes, no lesions, and no evidence of cellulitis. MS/ Extremity: Pulses equal, no cyanosis. Neurovascular intact. Full, normal range of motion. Neuro: Awake and alert, GCS 15, oriented to person, place, time, and situation. Cranial nerves II-XII grossly intact. Motor strength 5/5 in all extremities. Sensory grossly intact. Cerebellar exam normal. Normal gait. Vital Signs: 20:39 BP 129 / 86; Pulse 110; Resp 16; Temp 98; Pulse Ox 100% on R/A; Weight 47.17 kg; Height ed1 5 ft. 3 in. (160.02 cm); Pain 0/10; 21:05 BP 124 / 84; Pulse 95; Resp 18; Pulse Ox 100% on R/A; Pain 10/10; mg2 10/18 00:20 BP 120 / 90; Pulse 100; Resp 18; Pulse Ox 100% on R/A; Pain 0/10; mg2 01:40 BP 120 / 80; Pulse 98; Resp 18; Pulse Ox 100% on R/A; Pain 0/10; mg2 10/17 20:39 Body Mass Index 18.42 (47.17 kg, 160.02 cm) ed1 MDM: 10/17 20:45 Patient medically screened. [facility] 10/18 01:34 Data reviewed: vital signs, nurses notes, lab test result(s), radiologic studies, [facility] ultrasound, and as a result, I will discharge patient. Data interpreted: Pulse oximetry: on room air is 100 %. Interpretation: normal. Counseling: I had a detailed discussion with the patient and/or guardian regarding: the historical points, exam findings, and any diagnostic results supporting the discharge/admit diagnosis, lab results, radiology results, the need for outpatient follow up, an OB/Gyne specialist, to return to the emergency department if symptoms worsen or persist or if there are any questions or concerns that arise at home. ED course: No retained products shown on US. Bleeding stopped. HgB stable at this time. Will send home on iron supplementation. Needs to f/u with OB. Patient good with this plan. Knows to come back if worse . 10/17 20:45 Order name: Quantitative Hcg; Complete Time: 22:07 [facility] 10/17 20:45 Order name: Abo/rh Typing; Complete Time: 22:44 [facility] 10/17 20:45 Order name: Basic Metabolic Panel; Complete Time: 22:07 [facility] 10/17 20:45 Order name: CBC with Diff; Complete Time: 21:42 [facility] 10/17 21:25 Order name: Urine Dipstick--Ancillary (enter results); Complete Time: 22:53 mw2 10/17 21:25 Order name: Urine --Ancillary (enter results); Complete Time: 22:53 mw2 10/17 20:45 Order name: Urine Test (obtain specimen); Complete Time: 21:24 8 10/17 20:45 Order name: IV Saline Lock; Complete Time: : 8 10/17 20:45 Order name: Labs collected and sent; Complete Time: 21:02 8 10/17 20:45 Order name: NPO; Complete Time: : 8 10/17 20:45 Order name: Urine Dipstick-Ancillary (obtain specimen); Complete Time: 21:10/17 21:23 Order name: US Transvaginal Ob 10/17 23:05 Order name: Setup-Pelvic Exam; Complete Time: 23:41 10/17 23:49 Order name: Hemoglobin; Complete Time: 01:35 8 Administered Medications: No medications were administered Disposition: 03:29 Co-signature as Attending Physician, Riley Perkins MD I agree with the assessment and kdr plan of care. Disposition: 10/18/18 01:36 Discharged to Home. Impression: Spontaneous . - Condition is Stable. - Discharge Instructions: Miscarriage. - Prescriptions for Ferrous Sulfate 325 mg (65 mg Iron) Oral Tablet - take 1 tablet by ORAL route every 8 hours; 90 tablet. Doxycycline Monohydrate 100 mg Oral Tablet - take 1 tablet by ORAL route every 12 hours for 10 days; 20 tablet. - Medication Reconciliation Form, Thank You Letter, Antibiotic Education, Prescription Opioid Use form. - Follow up: Private Physician; When: 1 - 2 days; Reason: Recheck today's complaints, Continuance of care, Re-evaluation by your physician. - Problem is new. - Symptoms have improved. Signatures: Dispatcher [employer] EDVA Riley Perkins MD MD kdr Dee Falk RN RN ed1 Evan Barraza PA PA jr8 Lauri Rodriguez RN RN mg2 Corrections: (The following items were deleted from the chart) 01:51 01:36 10/18/2018 01:36 Discharged to Home. Impression: Spontaneous . Condition mg2 is Stable. Forms are Medication Reconciliation Form, Thank You Letter, Antibiotic Education, Prescription Opioid Use. Follow up: Private Physician; When: 1 - 2 days; Reason: Recheck today's complaints, Continuance of care, Re-evaluation by your physician. Problem is new. Symptoms have improved. jr8
[2018-10-18 02:15] VITALS: TEMP 98; O2SAT 100
[2018-10-18 02:19] VITALS: BP 120/80
--- NOTE | 2018-10-18 09:04 | RAD REPORT ---
EXAM DESCRIPTION: US - Transvaginal OB - 10/17/2018 10:05 pm CLINICAL HISTORY: with abdominal pain and vaginal bleeding FINDINGS: The uterus 9 x 4 x 4 centimeters. The endometrial stripe measures 1.2 centimeters. A gest ational sac is not visualized 2.7 centimeter right ovarian cyst. Ovaries are normal in size and echotexture. An adnexal mass is not seen. No significant free fluid is seen. IMPRESSION: These findings may represent an early IUP in which the gestational sac is not yet seen. An and even a ectopic can also result in this appearance. This all should be corre lated clinically and with serial beta HCG levels. Follow up ultrasound in 1 week is recommended 2.7 centimeter right ovarian cyst
== END 2018-10-18 01:51 | disposition home or self-care (01) ==
LOC: ER 20:27
DX: O03.9 Complete or unspecified spontaneous abortion without complication (principal); O99.330 Smoking (tobacco) complicating pregnancy, unspecified trimester; F17.210 Nicotine dependence, cigarettes, uncomplicated
CPT/HCPCS: 36415; 76817; 80048; 81003; 81025; 84702; 85018; 85025; 86900; 86901; 99284